=== PATIENT | male | born 1960 | race Caucasian/White ===

== ENCOUNTER 2021-08-23 14:37 | Inpatient (IN) | payer MEDICAID, OTHER, SELFPAY ==
[~2021-08-23] VITALS: Ht 162.6 cm; Wt 79.4 kg
[2021-08-23] MEDS ORDERED: NACL 0.9% 0 ML IV STA (14:42)
[2021-08-23] MEDS ORDERED: BLOOD GLUCOSE MONITORING 1 DEV DEV FS STA (14:42)
[2021-08-23 14:46] VITALS: BP 154/50
[2021-08-23] MEDS ORDERED: CEFEPIME 2,000 MG in DEXTROSE 5% 100 ML IV ONE (15:00)
[2021-08-23 15:33] LABS: BASOPHILS # (AUTO) 0.1 K/uL (0.00-0.22); BASOPHILS % (AUTO) 0.3 % (0.0-2.0); HEMATOCRIT 37.5 % (36-52); HEMOGLOBIN 12.5 g/dL (12.0-18.0); LYMPHOCYTES # (AUTO) 1.6 K/uL (2.0-11.5); LYMPHOCYTES % (AUTO) 7.8 % (20.5-51.1); MEAN CORPUSCULAR HEMOGLOBIN 30 pg (27-31); MEAN CORPUSCULAR HGB CONC 33 g/dL (33-37); MONOCYTES # (AUTO) 0.4 K/uL (0.8-1.0); MONOCYTES % (AUTO) 1.9 % (1.7-9.3); NEUTROPHILS # (AUTO) 18.8 K/uL (1.8-7.7); PLATELET COUNT (AUTO) 506 K/uL (140-450); RED BLOOD CELL COUNT(AUTO) 4.17 MIL/uL (4.20-6.10); RED CELL DISTRIBUTION WIDTH 18.8 % (11.6-13.7); WHITE BLOOD COUNT (AUTO) 20.9 K/uL (4.8-10.8)
[2021-08-23 15:55] LABS: ANION GAP 9.9 (8-16); CREATININE 0.3 mg/dL (0.6-1.3); POTASSIUM 4.9 mmol/L (3.5-5.1); TOTAL BILIRUBIN 0.3 mg/dL (0.0-1.0)
[2021-08-23 16:12] LABS: PROTHROMBIN TIME 9.9 secs (10.8-13.4)
[2021-08-23 16:18] LABS: BILIRUBIN,URINE NEGATIVE (NEGATIVE); BLOOD, URINE 3+ (NEGATIVE); LEUKOCYTE ESTERASE ,URINE 3+ (NEGATIVE); NITRITE, URINE NEGATIVE (NEGATIVE); UGLUCOSE NEGATIVE (NEGATIVE)
[2021-08-23] MEDS ORDERED: CEFEPIME 2,000 MG VIAL IV ONE (16:45)
[2021-08-23] MEDS ORDERED: FURO-570 GT (17:17)
[2021-08-23] MEDS ORDERED: FERR325E14 GT (17:17)
[2021-08-23] MEDS ORDERED: DOCU-299 GT (17:17)
[2021-08-23] MEDS ORDERED: MULT-1328 GT (17:17)
[2021-08-23] MEDS ORDERED: LANS15EC28 GT (17:17)
[2021-08-23] MEDS ORDERED: PRED20TA5 GT (17:17)
[2021-08-23] MEDS ORDERED: LACT-103 GT (17:17)
[2021-08-23] MEDS ORDERED: PRO5 GT (17:17)
[2021-08-23] MEDS ORDERED: ASCO500T95 GT (17:17)
[2021-08-23] MEDS ORDERED: ZINC220T4 GT (17:17)
[2021-08-23] MEDS ORDERED: METO5SOL19 GT (17:17)
[2021-08-23] MEDS ORDERED: HYDR-1102 GT (17:17)
[2021-08-23 17:32] LABS: APPEARANCE,URINE HAZY (CLEAR)
[2021-08-23 17:33] LABS: COLOR,URINE STRAW (YELLOW); RBC,URINE 0-5 /HPF (0-5); WBC,URINE 20-60 /HPF (0-5)
[2021-08-23] MEDS ORDERED: DOCUSATE SODIUM 100 MG GELCAP PO PRN (18:05)
[2021-08-23] MEDS ORDERED: ACETAMINOPHEN 325 MG TAB PO PRN (18:05)
[2021-08-23] MEDS ORDERED: ZOLPIDEM 5 MG TAB PO PRN (18:05)
[2021-08-23] MEDS ORDERED: ONDANSETRON 4 MG/2 ML VIAL IM/IVP PRN (18:05)
[2021-08-23] MEDS ORDERED: POTASSIUM CHLORIDE 10 MEQ TABER PO PRN (18:05)
[2021-08-23] MEDS ORDERED: HYDROcodone/APAP 7.5/325 MG 1 TAB PO PRN (18:05)
[2021-08-23] MEDS ORDERED: guaiFENesin DM 200/20 MG-10 ML 10 ML UDC PO PRN (18:05)
[2021-08-23] MEDS ORDERED: ALBUTEROL SULFATE/IPRATROPIU 3 ML SOL IH PRN (18:10)
[2021-08-23] MEDS: NACL 0.9% 1,000 ML IV SCH (18:24)
[2021-08-23 18:42] LABS: FREE T4 (FREE THYROXINE) 1.04 ng/dL (0.76-1.46); MAGNESIUM 2.4 mg/dL (1.8-2.4); PHOSPHORUS 4.1 mg/dL (2.5-4.9); THYROID STIMULATING HORMONE 3.74 uIU/mL (0.34-3.74)
[2021-08-23 19:08] LABS: CHOL/HDL RATIO 6.4 (1-4.5)
[2021-08-23 19:52] VITALS: BP 98/65
[2021-08-23] MEDS: ALBUTEROL SULFATE/IPRATROPIU 3 ML SOL IH SCH (19:52)
[2021-08-23 22:40] VITALS: BP 126/69
[2021-08-23] MEDS ORDERED: PIPERACILLIN/TAZOBACTAM 3.375 GM VIAL IV ONE (23:56)
[2021-08-24] VITALS (8 sets, daily range): BP systolic 92–126; BP diastolic 60–86
[2021-08-24] MEDS: PIPERACILLIN/TAZOBACTAM 3.375 GM in DEXTROSE 5% 50 ML IV SCH ×4 (00:01→17:48)
[2021-08-24] MEDS ORDERED: PIPERACILLIN/TAZOBACTAM 3.375 GM VIAL IV ONE (06:10)
[2021-08-24 07:05] LABS: BASOPHILS # (AUTO) 0.1 K/uL (0.00-0.22); BASOPHILS % (AUTO) 0.5 % (0.0-2.0); EOSINOPHILS # (AUTO) 0.9 K/uL (0-0.4); EOSINOPHILS % (AUTO) 3.9 % (0.0-4.0); HEMOGLOBIN 13.3 g/dL (12.0-18.0)
[2021-08-24 07:09] LABS: HEMATOCRIT 38.3 % (36-52); LYMPHOCYTES # (AUTO) 3.9 K/uL (2.0-11.5); LYMPHOCYTES % (AUTO) 17.2 % (20.5-51.1); MEAN CORPUSCULAR HEMOGLOBIN 31 pg (27-31); MEAN CORPUSCULAR HGB CONC 35 g/dL (33-37); MEAN CORPUSCULAR VOLUME 88.8 fL (80-94); MONOCYTES # (AUTO) 1.4 K/uL (0.8-1.0); MONOCYTES % (AUTO) 6.1 % (1.7-9.3); NEUTROPHILS # (AUTO) 16.6 K/uL (1.8-7.7); NEUTROPHILS % (AUTO) 72.3 % (42.2-75.2); PLATELET COUNT (AUTO) 479 K/uL (140-450); RED BLOOD CELL COUNT(AUTO) 4.32 MIL/uL (4.20-6.10); RED CELL DISTRIBUTION WIDTH 18.2 % (11.6-13.7); WHITE BLOOD COUNT (AUTO) 22.9 K/uL (4.8-10.8)
[2021-08-24 07:26] LABS: ANION GAP 11.6 (8-16); CARBON DIOXIDE 34.4 mmol/L (21-32); CREATININE 0.3 mg/dL (0.6-1.3)
[2021-08-24] MEDS: ALBUTEROL SULFATE/IPRATROPIU 3 ML SOL IH SCH ×3 (07:50→19:04)
[2021-08-24] MEDS: PANTOPRAZOLE 40 MG TABEC PO SCH (08:53)
[2021-08-24] MEDS ORDERED: LINEZOLID 600MG PREMIX 300 ML IV SCH (09:00)
[2021-08-24] MEDS: NACL 0.9% 1,000 ML IV SCH (10:48)
[2021-08-24 15:06] LABS: T4 (THYROXINE) 7.6 ug/dL (4.5-12.0)
[2021-08-25] VITALS: BP 133/72
[2021-08-25] MEDS: PIPERACILLIN/TAZOBACTAM 3.375 GM in DEXTROSE 5% 50 ML IV SCH ×4 (00:08→18:24)
[2021-08-25] MEDS: NACL 0.9% 1,000 ML IV SCH ×2 (03:25→23:00)
[2021-08-25 04:00] VITALS: BP 137/73
[2021-08-25 06:55] LABS: BASOPHILS # (AUTO) 0.1 K/uL (0.00-0.22); EOSINOPHILS # (AUTO) 0.3 K/uL (0-0.4); EOSINOPHILS % (AUTO) 2.1 % (0.0-4.0); HEMATOCRIT 36.6 % (36-52); HEMOGLOBIN 12.3 g/dL (12.0-18.0); LYMPHOCYTES % (AUTO) 14.4 % (20.5-51.1); MEAN CORPUSCULAR HEMOGLOBIN 30 pg (27-31); MEAN CORPUSCULAR HGB CONC 34 g/dL (33-37); MEAN CORPUSCULAR VOLUME 89.4 fL (80-94); MONOCYTES # (AUTO) 0.8 K/uL (0.8-1.0); MONOCYTES % (AUTO) 6.1 % (1.7-9.3); NEUTROPHILS # (AUTO) 10.4 K/uL (1.8-7.7); NEUTROPHILS % (AUTO) 76.4 % (42.2-75.2); PLATELET COUNT (AUTO) 386 K/uL (140-450); RED BLOOD CELL COUNT(AUTO) 4.09 MIL/uL (4.20-6.10); RED CELL DISTRIBUTION WIDTH 18.5 % (11.6-13.7); WHITE BLOOD COUNT (AUTO) 13.6 K/uL (4.8-10.8)
[2021-08-25 07:07] LABS: ANION GAP 9.1 (8-16); CARBON DIOXIDE 33.8 mmol/L (21-32); CREATININE 0.3 mg/dL (0.6-1.3)
[2021-08-25 07:33] LABS: POTASSIUM 2.9 mmol/L (3.5-5.1)
[2021-08-25 08:00] VITALS: BP 135/81
[2021-08-25] MEDS: ALBUTEROL SULFATE/IPRATROPIU 3 ML SOL IH SCH ×2 (08:15→19:53)
[2021-08-25] MEDS: PANTOPRAZOLE 40 MG TABEC PO SCH (09:00)
[2021-08-25] MEDS ORDERED: KCL 20 MEQ/WATER INJ PREMIX 200 ML IV SCH (10:30)
[2021-08-25] MEDS ORDERED: DEXTROSE 50% 50 ML SYR IVP PRN (11:30)
[2021-08-25] MEDS ORDERED: INSULIN LISPRO SLIDING SCALE 100 UNITS/ML VIAL SUBQ PRN (11:30)
[2021-08-25] MEDS: BLOOD GLUCOSE MONITORING 1 DEV DEV FS SCH ×3 (11:30→21:00)
[2021-08-25 12:00] VITALS: BP 132/89
[2021-08-25] MEDS: HYDRAGUARD CREAM TP SCH (13:12)
[2021-08-25] MEDS: GAUZE TP SCH (13:13)
[2021-08-25 16:00] VITALS: BP 142/87
[2021-08-25 20:00] VITALS: BP 139/87
[2021-08-25] MEDS ORDERED: MEROPENEM 1,000 MG VIAL IV ONE (21:19)
[2021-08-25] MEDS: MEROPENEM 1,000 MG in NACL 0.9% 100 ML IV SCH (21:33)
[2021-08-26] VITALS: BP 145/84
[2021-08-26] MEDS: HYDRAGUARD CREAM TP SCH ×2 (01:08→13:00)
[2021-08-26 04:00] VITALS: BP 126/73
[2021-08-26] MEDS: BLOOD GLUCOSE MONITORING 1 DEV DEV FS SCH ×4 (07:30→20:52)
[2021-08-26 07:31] LABS: BASOPHILS # (AUTO) 0.1 K/uL (0.00-0.22); BASOPHILS % (AUTO) 0.6 % (0.0-2.0); EOSINOPHILS # (AUTO) 0.3 K/uL (0-0.4); EOSINOPHILS % (AUTO) 2.2 % (0.0-4.0); HEMATOCRIT 35.4 % (36-52); HEMOGLOBIN 11.9 g/dL (12.0-18.0); LYMPHOCYTES # (AUTO) 1.9 K/uL (2.0-11.5); LYMPHOCYTES % (AUTO) 12.2 % (20.5-51.1); MEAN CORPUSCULAR HEMOGLOBIN 30 pg (27-31); MEAN CORPUSCULAR HGB CONC 34 g/dL (33-37); MEAN CORPUSCULAR VOLUME 88.7 fL (80-94); MONOCYTES # (AUTO) 0.8 K/uL (0.8-1.0); NEUTROPHILS # (AUTO) 12.1 K/uL (1.8-7.7); PLATELET COUNT (AUTO) 365 K/uL (140-450); RED BLOOD CELL COUNT(AUTO) 3.99 MIL/uL (4.20-6.10); RED CELL DISTRIBUTION WIDTH 18.4 % (11.6-13.7); WHITE BLOOD COUNT (AUTO) 15.1 K/uL (4.8-10.8)
[2021-08-26 07:35] LABS: ANION GAP 5.5 (8-16); CARBON DIOXIDE 33.7 mmol/L (21-32); CREATININE 0.2 mg/dL (0.6-1.3); POTASSIUM 3.2 mmol/L (3.5-5.1)
[2021-08-26 08:00] VITALS: BP 145/84
[2021-08-26] MEDS: ALBUTEROL SULFATE/IPRATROPIU 3 ML SOL IH SCH ×4 (08:22→20:51)
[2021-08-26] MEDS: MEROPENEM 1,000 MG in NACL 0.9% 100 ML IV SCH ×2 (09:58→20:40)
[2021-08-26] MEDS: PANTOPRAZOLE 40 MG INJ VIAL IVP SCH (09:58)
[2021-08-26 12:00] VITALS: BP 145/84
[2021-08-26] MEDS: NACL 0.9% 1,000 ML IV SCH (12:52)
[2021-08-26] MEDS: GAUZE TP SCH (13:00)
[2021-08-26 20:00] VITALS: BP 107/58
[2021-08-27] MEDS: HYDRAGUARD CREAM TP SCH ×2 (01:12→13:00)
[2021-08-27 04:00] VITALS: BP 110/58
[2021-08-27] MEDS: NACL 0.9% 1,000 ML IV SCH ×2 (04:01→22:05)
[2021-08-27] MEDS: BLOOD GLUCOSE MONITORING 1 DEV DEV FS SCH ×4 (06:17→21:17)
[2021-08-27 06:57] LABS: ANION GAP 2.5 (8-16); CARBON DIOXIDE 34.3 mmol/L (21-32); CREATININE 0.2 mg/dL (0.6-1.3); POTASSIUM 3.8 mmol/L (3.5-5.1)
[2021-08-27 07:01] LABS: BASOPHILS # (AUTO) 0.1 K/uL (0.00-0.22); BASOPHILS % (AUTO) 0.9 % (0.0-2.0); EOSINOPHILS # (AUTO) 0.2 K/uL (0-0.4); EOSINOPHILS % (AUTO) 1.8 % (0.0-4.0); HEMATOCRIT 33.7 % (36-52); HEMOGLOBIN 10.9 g/dL (12.0-18.0); LYMPHOCYTES # (AUTO) 2.5 K/uL (2.0-11.5); LYMPHOCYTES % (AUTO) 19.1 % (20.5-51.1); MEAN CORPUSCULAR HEMOGLOBIN 29 pg (27-31); MEAN CORPUSCULAR HGB CONC 33 g/dL (33-37); MEAN CORPUSCULAR VOLUME 89.6 fL (80-94); MONOCYTES # (AUTO) 0.8 K/uL (0.8-1.0); MONOCYTES % (AUTO) 6.4 % (1.7-9.3); NEUTROPHILS # (AUTO) 9.4 K/uL (1.8-7.7); NEUTROPHILS % (AUTO) 71.8 % (42.2-75.2); PLATELET COUNT (AUTO) 340 K/uL (140-450); RED BLOOD CELL COUNT(AUTO) 3.76 MIL/uL (4.20-6.10); WHITE BLOOD COUNT (AUTO) 13.1 K/uL (4.8-10.8)
[2021-08-27] MEDS: ALBUTEROL SULFATE/IPRATROPIU 3 ML SOL IH SCH ×3 (07:48→19:42)
[2021-08-27] MEDS: MEROPENEM 1,000 MG in NACL 0.9% 100 ML IV SCH ×2 (09:45→20:34)
[2021-08-27] MEDS: PANTOPRAZOLE 40 MG INJ VIAL IVP SCH (09:46)
[2021-08-27 12:00] VITALS: BP 113/62
[2021-08-27] MEDS: GAUZE TP SCH (13:00)
[2021-08-27 20:00] VITALS: BP 127/71
[2021-08-27] MEDS ORDERED: COLISTIMETHATE SODIUM 150 MG in NACL 0.9% 100 ML IV SCH (21:00)
[2021-08-27] MEDS ORDERED: COLISTIMETHATE SODIUM 150 MG VIAL ONE (21:12)
[2021-08-28] MEDS: HYDRAGUARD CREAM TP SCH ×2 (01:00→13:19)
[2021-08-28 04:00] VITALS: BP 125/74
[2021-08-28] MEDS: BLOOD GLUCOSE MONITORING 1 DEV DEV FS SCH ×4 (06:43→21:31)
[2021-08-28 06:50] LABS: BASOPHILS # (AUTO) 0.1 K/uL (0.00-0.22); BASOPHILS % (AUTO) 0.9 % (0.0-2.0); EOSINOPHILS # (AUTO) 0.3 K/uL (0-0.4); EOSINOPHILS % (AUTO) 2.7 % (0.0-4.0); HEMATOCRIT 31.3 % (36-52); HEMOGLOBIN 10.3 g/dL (12.0-18.0); LYMPHOCYTES # (AUTO) 2.3 K/uL (2.0-11.5); LYMPHOCYTES % (AUTO) 19.4 % (20.5-51.1); MEAN CORPUSCULAR HEMOGLOBIN 30 pg (27-31); MEAN CORPUSCULAR HGB CONC 33 g/dL (33-37); MEAN CORPUSCULAR VOLUME 90.2 fL (80-94); MONOCYTES # (AUTO) 0.7 K/uL (0.8-1.0); MONOCYTES % (AUTO) 5.5 % (1.7-9.3); NEUTROPHILS # (AUTO) 8.6 K/uL (1.8-7.7); NEUTROPHILS % (AUTO) 71.5 % (42.2-75.2); PLATELET COUNT (AUTO) 304 K/uL (140-450); RED BLOOD CELL COUNT(AUTO) 3.47 MIL/uL (4.20-6.10); RED CELL DISTRIBUTION WIDTH 18.6 % (11.6-13.7); WHITE BLOOD COUNT (AUTO) 12.1 K/uL (4.8-10.8)
[2021-08-28 07:38] LABS: ANION GAP 4.5 (8-16); CARBON DIOXIDE 32.9 mmol/L (21-32); CREATININE 0.2 mg/dL (0.6-1.3); POTASSIUM 3.4 mmol/L (3.5-5.1)
[2021-08-28] MEDS: ALBUTEROL SULFATE/IPRATROPIU 3 ML SOL IH SCH ×3 (07:56→19:00)
[2021-08-28 08:00] VITALS: BP 105/60
[2021-08-28] MEDS: COLISTIMETHATE SODIUM 75 MG in NACL 0.9% 100 ML IV SCH ×2 (09:00→21:37)
[2021-08-28] MEDS: PANTOPRAZOLE 40 MG INJ VIAL IVP SCH (09:30)
[2021-08-28] MEDS: MEROPENEM 1,000 MG in NACL 0.9% 100 ML IV SCH ×2 (09:31→21:38)
[2021-08-28] MEDS: NACL 0.9% 1,000 ML IV SCH (09:44)
[2021-08-28] MEDS: GAUZE TP SCH (13:18)
[2021-08-28 16:00] VITALS: BP 105/57
[2021-08-28] MEDS ORDERED: COLISTIMETHATE SODIUM 150 MG VIAL ONE (21:44)
[2021-08-29] MEDS: HYDRAGUARD CREAM TP SCH ×2 (01:17→13:46)
[2021-08-29 04:00] VITALS: BP 145/75
[2021-08-29] MEDS: BLOOD GLUCOSE MONITORING 1 DEV DEV FS SCH ×3 (06:35→16:30)
[2021-08-29 06:58] LABS: BASOPHILS # (AUTO) 0.1 K/uL (0.00-0.22); BASOPHILS % (AUTO) 0.9 % (0.0-2.0); EOSINOPHILS # (AUTO) 0.3 K/uL (0-0.4); EOSINOPHILS % (AUTO) 2.9 % (0.0-4.0); HEMATOCRIT 32.6 % (36-52); HEMOGLOBIN 10.8 g/dL (12.0-18.0); LYMPHOCYTES # (AUTO) 2.3 K/uL (2.0-11.5); LYMPHOCYTES % (AUTO) 19.6 % (20.5-51.1); MEAN CORPUSCULAR HEMOGLOBIN 30 pg (27-31); MEAN CORPUSCULAR HGB CONC 33 g/dL (33-37); MEAN CORPUSCULAR VOLUME 89.9 fL (80-94); MONOCYTES % (AUTO) 8.3 % (1.7-9.3); NEUTROPHILS # (AUTO) 8.1 K/uL (1.8-7.7); NEUTROPHILS % (AUTO) 68.3 % (42.2-75.2); PLATELET COUNT (AUTO) 293 K/uL (140-450); RED BLOOD CELL COUNT(AUTO) 3.62 MIL/uL (4.20-6.10); RED CELL DISTRIBUTION WIDTH 18.6 % (11.6-13.7); WHITE BLOOD COUNT (AUTO) 11.8 K/uL (4.8-10.8)
[2021-08-29 07:05] LABS: ANION GAP 5.4 (8-16); CARBON DIOXIDE 32.3 mmol/L (21-32); CREATININE 0.2 mg/dL (0.6-1.3); POTASSIUM 3.7 mmol/L (3.5-5.1)
[2021-08-29] MEDS: NACL 0.9% 1,000 ML IV SCH (07:25)
[2021-08-29] MEDS: ALBUTEROL SULFATE/IPRATROPIU 3 ML SOL IH SCH ×2 (07:51→13:23)
[2021-08-29 08:00] VITALS: BP 101/54
[2021-08-29] MEDS: COLISTIMETHATE SODIUM 75 MG in NACL 0.9% 100 ML IV SCH ×2 (09:00→21:26)
[2021-08-29] MEDS: PANTOPRAZOLE 40 MG INJ VIAL IVP SCH (09:29)
[2021-08-29] MEDS: MEROPENEM 1,000 MG in NACL 0.9% 100 ML IV SCH ×2 (09:29→20:40)
[2021-08-29] MEDS: GAUZE TP SCH (13:45)
[2021-08-29 16:00] VITALS: BP 119/59
[2021-08-29] MEDS ORDERED: COLISTIMETHATE IV (18:19)
[2021-08-29] MEDS ORDERED: CAMERA MC ONE (20:45)
[2021-08-29 21:00] VITALS: BP 103/69
[2021-08-29 21:50] VITALS: BP 103/69
== END 2021-08-29 23:20 | DRG 720 ==
LOC: MED 14:37 → MTU 16:51
PROVIDERS: ADMIT Family Medicine; ATTEND Family Medicine
PROC: 5A1955Z Respiratory Ventilation, Greater than 96 Consecutive Hours (ICD-10-PCS; principal; 2021-08-23)
DX: A41.9 Sepsis, unspecified organism (principal); J96.21 Acute and chronic respiratory failure with hypoxia; J69.0 Pneumonitis due to inhalation of food and vomit; G93.41 Metabolic encephalopathy; B96.1 Klebsiella pneumoniae [K. pneumoniae] as the cause of diseases classified elsewhere; E44.0 Moderate protein-calorie malnutrition; E87.1 Hypo-osmolality and hyponatremia; J96.22 Acute and chronic respiratory failure with hypercapnia; R13.10 Dysphagia, unspecified; N39.0 Urinary tract infection, site not specified; E11.9 Type 2 diabetes mellitus without complications; M84.48XA Pathological fracture, other site, initial encounter for fracture; J93.9 Pneumothorax, unspecified; G80.9 Cerebral palsy, unspecified; I50.9 Heart failure, unspecified; Z16.12 Extended spectrum beta lactamase (ESBL) resistance; I25.10 Atherosclerotic heart disease of native coronary artery without angina pectoris; R65.20 Severe sepsis without septic shock; Z20.822 Contact with and (suspected) exposure to COVID-19; Z93.1 Gastrostomy status; Z87.01 Personal history of pneumonia (recurrent); Z88.1 Allergy status to other antibiotic agents; Z68.30 Body mass index [BMI] 30.0-30.9, adult; Z79.899 Other long term (current) drug therapy
CPT/HCPCS: 36415; 71045; 71250; 76604; 80048; 80053; 81001; 82150; 82803; 82948; 83036; 83605; 83690; 83735; 83880; 84100; 84436; 84439; 84443; 84479; 84484; 85025; 85610; 85730; 87040; 87070; 87081; 87086; 87205; 87804; 89220; 93005; 94003; 94640; 96361; 96365; 99291; C9113; J0692; J0770; J2020; J2185; J2543; J3480; J7060; Q0092; U0003